=== PATIENT | female | born 1985 | race Caucasian/White ===

== ENCOUNTER 2016-07-10 14:25 | Emergency (ER) | payer BC, MEDICAID ==
[~2016-07-10] VITALS: Ht 172.7 cm; Wt 99.8 kg
[2016-07-10 14:42] VITALS: BP_SYST 116
--- NOTE | 2016-07-10 15:13 | NUR ---
Patient to ER bed 05 to gown for evaluation. Side rails up. Report given to Nadia.
--- NOTE | 2016-07-10 15:15 | NUR ---
ER Dr. Girard at bedside examining patient.
--- NOTE | 2016-07-10 15:50 | NUR ---
TAKEN TO RADIOLOGY FOR ULTRASOUND
--- NOTE | 2016-07-10 16:17 | NUR ---
RETURNED FROM RADIOLOGY, PLACED BACK TO BED #5
[2016-07-10 16:26] LABS: BASOPHILS % (AUTO) 0.5 % (0.0-2.0); EOSINOPHILS # (AUTO) 0.2 K/uL (0.0-0.4); HEMOGLOBIN 12.6 g/dL (12.0-16.0); LYMPHOCYTES # (AUTO) 1.5 K/uL (1.0-5.5); LYMPHOCYTES % (AUTO) 15.1 % (20.5-51.5); MEAN CORPUSCULAR HEMOGLOBIN 30 pg (27-31); MEAN CORPUSCULAR HGB CONC 34 % (32-36); MEAN CORPUSCULAR VOLUME 89 fL (79.0-98.0); MONOCYTES # (AUTO) 0.9 K/uL (0.0-1.0); MONOCYTES % (AUTO) 9.4 % (1.7-9.3); NEUTROPHILS # (AUTO) 7.4 K/uL (1.8-7.7); PLATELET COUNT (AUTO) 261 K/uL (130-430); RED BLOOD CELL COUNT(AUTO) 4.17 MIL/uL (4.2-6.2); RED CELL DISTRIBUTION WIDTH 12.6 % (9.0-15.0)
[2016-07-10 16:32] LABS: CALCIUM 8.7 mg/dL (8.4-11.0); CREATININE 0.59 mg/dL (0.55-1.30); POTASSIUM 3.8 mmol/L (3.5-5.1)
[2016-07-10 16:36] LABS: ALBUMIN 3.1 g/dL (3.4-4.8); TOTAL BILIRUBIN 0.3 mg/dL (0.0-1.0); TOTAL PROTEIN, SERUM 7.2 g/dL (6.4-8.3)
[2016-07-10] MEDS ORDERED: NACL 0.9% 1,000 ML IV ONE (16:45)
--- NOTE | 2016-07-10 16:45 | NUR ---
# 20 gauge angiocath placed to rh. Use of asceptic technique. Opsite placed over site. Blood return noted. Flushed with 10 cc of normal saline. No evidence of infiltration noted. Patient tolerated well.
--- NOTE | 2016-07-10 17:00 | NUR ---
iv fluids running in place iv site flushed no infiltration noted
[2016-07-10 18:03] LABS: BILIRUBIN,URINE NEGATIVE (NEGATIVE); COLOR,URINE YELLOW (YELLOW); GLUCOSE,URINE NEGATIVE (NEGATIVE); KETONES,URINE NEGATIVE (NEGATIVE); LEUKOCYTE ESTERASE ,URINE NEGATIVE (NEGATIVE); NITRITE, URINE NEGATIVE (NEGATIVE); PROTEIN URINE NEGATIVE (NEGATIVE); UROBILINOGEN,URINE 0.2 (0.2-1.0)
[2016-07-10 18:08] LABS: BLOOD, URINE TRACE (NEGATIVE); CLARITY/URINE SLIGHTLY HAZY (CLEAR)
[2016-07-10 18:13] LABS: BACTERIA,URINE MANY /HPF (None Seen); CALCIUM OXALATE CRYSTALS,UR >100 /HPF (None Seen); MUCUS,URINE None Seen /LPF (None Seen); RBC,URINE 0-3 /HPF (0-3)
[2016-07-10 18:15] VITALS: BP_SYST 121
--- NOTE | 2016-07-10 18:15 | NUR ---
Patient given written and verbal discharge instructions and verbalizes understanding. ER MD dr. bailey discussed with patient the results and treatment provided. Patient in stable condition. ID arm band removed. IV catheter removed intact and dressing applied, no active bleeding. no Rx given. Patient educated on pain management and to follow up with PMD. Pain Scale 0/10 Opportunity for questions provided and answered.
== END 2016-07-10 18:15 | disposition home or self-care (01) ==
LOC: SED 14:25
DX: O26.892 Other specified pregnancy related conditions, second trimester (principal); R19.7 Diarrhea, unspecified; R10.84 Generalized abdominal pain; Z3A.18 18 weeks gestation of pregnancy; Z90.49 Acquired absence of other specified parts of digestive tract
CPT/HCPCS: 36415; 76805-TC; 80053; 81000-TC; 82150-TC; 83690-TC; 85025; 85610-TC; 85730-TC; 87086; 96360; 99285; J7030

== ENCOUNTER 2018-01-17 17:10 | Emergency (ER) | payer BC, MEDICAID ==
[~2018-01-17] VITALS: Ht 170.2 cm; Wt 97.1 kg
[2018-01-17 17:10] VITALS: BP_SYST 126
--- NOTE | 2018-01-17 17:10 | NUR ---
BROUGHT BACK TO BED #4 AND TRIAGED. REPORT GIVEN TO RIGOBERTO/AMY
--- NOTE | 2018-01-17 17:20 | NUR ---
Pt presents to ER c/o sore throat, productive cough w/ green sputum, congestion, fever of 102 at home, bilateral ear pain, dull chest discomfort. Pt reports symptoms have been ongoing x 10 days, was seen here last week and sent home with Rx. Rx medications reportedly have not relieved symptoms. Upon arrival to ER, pt reports pain level 5/10, denies sob or chest pain, denies nausea or vomiting, pt's voice gone due to sore throat, pt able to communicate but voice is dry, scratchy. Pt AOX4, ambulatory, speaking full sentences, no signs of respiratory distress.
--- NOTE | 2018-01-17 17:45 | NUR ---
Aniyah Dutta OCCUPATIONAL ANALYST at bedside examining pt.
[2018-01-17 18:44] VITALS: BP_SYST 126
--- NOTE | 2018-01-17 18:44 | NUR ---
Patient given written and verbal discharge instructions and verbalizes understanding. ER MD discussed with patient the results and treatment provided. Patient in stable condition. ID arm band removed. Rx of Promethazine Hcl, Prednisone, Augemntin given. Patient educated on pain management and to follow up with PMD. Pain Scale 2/10. Opportunity for questions provided and answered. Medication side effect fact sheet provided.
== END 2018-01-17 18:44 | disposition home or self-care (01) ==
LOC: SED 17:10
DX: J01.90 Acute sinusitis, unspecified (principal); R03.0 Elevated blood-pressure reading, without diagnosis of hypertension
CPT/HCPCS: 99283